=== PATIENT | male | born 2000 | race Caucasian/White ===

== ENCOUNTER 2023-09-05 08:24 | Emergency (ER) | payer OTHER ==
[~2023-09-05] VITALS: Ht 180.3 cm; Wt 68.9 kg
[~2023-09-05 08:24] MED LIST: CRUTCHES XX; HYDROCODON-ACE1 EA11 PO
[2023-09-05] MEDS ORDERED: BACTRIM DS TAB1 EACH PO (08:57)
[2023-09-05 09:32] VITALS: BP 136/82
== END 2023-09-05 09:00 | disposition home or self-care (01) ==
LOC: ED 08:24
DX: L97.119 Non-pressure chronic ulcer of right thigh with unspecified severity (principal); L03.115 Cellulitis of right lower limb; Z88.0 Allergy status to penicillin
CPT/HCPCS: A9270